=== PATIENT | female | born 1995 | race Caucasian/White ===

== ENCOUNTER → 2018-04-30 | Outpatient (CLI) | payer BC ==
--- NOTE | 2018-04-30 14:19 | RADIOLOGY REPORT (SQ) ---
EXAM DESCRIPTION: MRI HEAD WITHOUT COMPLETED DATE/TIME: 04/30/2018 1:04 pm REASON FOR STUDY: R51 HEADACHE R51 HEADACHE COMPARISON: None. TECHNIQUE: Multiplanar imaging includes non-contrasted T1, T2, FLAIR, and diffusion with ADC map seq uences. Images stored on PACS. LIMITATIONS: None. FINDINGS: ANATOMY: No anomalies. Normal vascular flow voids. Pituitary fossa normal. CSF SPACES: Normal in size and contour. No hemorrhage. CEREBRUM: Sulci and gyri normal in size and contour. Normal white matter signal on FLAIR imaging. No evidence of hemorrhage, mass, or extraaxial fluid collection. POSTERIOR FOSSA: No signal alteration. No hemorrhage. No edema, masses or mass effect. Internal vesta tory canals, cerebello-pontine angles, mastoids normal. DIFFUSION IMAGING: Negative for acute or sub-acute infarction. ORBITS: No masses. Globes normal. PARANASAL SINUSES: No fluid levels. Mucosa normal. OTHER: Susceptibility Imaging-No T2* evidence of abnormal parenchymal iron deposition. Diffusion ten sor imaging is unremarkable. IMPRESSION: NORMAL MRI OF THE BRAIN WITHOUT INTRAVENOUS GADOLINIUM CONTRAST. EVIDENCE OF ACUTE STROKE: NO. TECHNICAL DOCUMENTATION: JOB ID: [id number] [employer]- All Rights Reserved Reading location - IP/workstation name: [email or web address]
== END ==
LOC: RAD 13:53
PROVIDERS: ATTEND Specialist
DX: R51 Headache (principal)
CPT/HCPCS: 70551

== ENCOUNTER 2019-04-14 19:38 | Emergency (ER) | payer MEDICAID, OTHER ==
[2019-04-14 20:28] VITALS: BP 116/80
[2019-04-14] MEDS ORDERED: DIPHENHYDRAMINE HCL 50 MG/ML VIAL IV ONE (20:42)
[2019-04-14] MEDS ORDERED: NORMAL SALINE 1000 ML 1,000 ML IV ONE (20:42)
[2019-04-14] MEDS ORDERED: PROCHLORPERAZINE EDISYLATE INJ 10 MG/2 ML VIAL IV ONE (20:42)
--- NOTE | 2019-04-14 20:45 | ER Document Report ---
ED Medical Screen (RME) - General Chief Complaint: Chest Pain Stated Complaint: CHEST PAIN,HEADACHE Time Seen by Provider: 04/14/19 20:36 Primary Care Provider: THERESA DELEON MD [Primary Care Provider] - Follow up as needed Mode of Arrival: Ambulatory Information source: Patient Notes: Patient is an otherwise healthy 23-year-old female presenting to the emergency department chief complaint of midsternal chest pain that started Sunday. She reports it feels like a tightness and heaviness. She reports associated dizziness today. She states that she went to an urgent care who gave her multiple breathing treatments although she states that they told her her lungs were clear and she had no wheezing. She states that they gave her prescriptions for albuterol and sent her to the emergency department for a CAT scan of her chest as they felt that she might have a pulmonary embolism due to the fact that she is on control pills. Patient has no history of DVT or PE, she has not had any recent travel and is a non-smoker. She does take oral contraceptives. Exam: Heart sounds S1-S2 present with no ectopy noted, normal rate, normal rhythm. Lungs clear and equal bilaterally, no wheezes, rhonchi or adventitious lung sounds. I have greeted and performed a rapid initial assessment of this patient. A comprehensive ED assessment and evaluation of the patient, analysis of test results and completion of the medical decision making process will be conducted by additional ED providers. I have specifically instructed the patient or family members with the patient to immediately return to any nursing staff should anything change in the patient's condition or with their chief complaint. This medical record was dictated with voice recognizing software. There may be grammatical, syntax errors that are unintended. TRAVEL OUTSIDE OF THE [place] IN LAST 30 DAYS: No - Related Data Allergies/Adverse Reactions: No Known Allergies Allergy (Verified 04/14/19 19:39) Physical Exam - Vital signs Vitals: Temp Pulse Resp BP Pulse Ox 98.5 F 84 16 116/80 97 04/14/19 20:27 04/14/19 20:27 04/14/19 20:27 04/14/19 20:27 04/14/19 20:27 Course - Vital Signs Vital signs: Temp Pulse Resp BP Pulse Ox 98.5 F 84 16 116/80 97 04/14/19 20:27 04/14/19 20:27 04/14/19 20:27 04/14/19 20:27 04/14/19 20:27 Doctor's Discharge - Discharge Referrals: THERESA DELEON MD [Primary Care Provider] - Follow up as needed
[2019-04-14 21:28] LABS: ABSOLUTE EOSINOPHILS # (AUTO) 0.1 10^3/uL (0.0-0.6); ABSOLUTE MONOCYTES (AUTO) 0.6 10^3/uL (0.1-1.4); ABSOLUTE NEUT (AUTO) 5.1 10^3/uL (1.7-8.2); BASOPHILS % (AUTO) 0.4 % (0-2); EOSINOPHILS % (AUTO) 0.7 % (0-6); HEMATOCRIT 39.5 % (36.0-47.0); HEMOGLOBIN 13.5 g/dL (12.0-15.5); LYMPHOCYTES % (AUTO) 33.8 % (13-45); MEAN CORPUSCULAR HEMOGLOBIN 31.5 pg (27.0-33.4); MEAN CORPUSCULAR HGB CONC 34.3 g/dL (32.0-36.0); MEAN CORPUSCULAR VOLUME 92 fl (80-97); MONOCYTES % (AUTO) 7.3 % (3-13); PLATELET COUNT 279 10^3/uL (150-450); RED BLOOD COUNT 4.29 10^6/uL (3.72-5.28); RED CELL DISTRIBUTION WIDTH 11.4 % (11.5-14.0); SEGMENTED NEUTROPHILS % (AUTO) 57.8 % (42-78); TOTAL CELLS COUNTED % (AUTO) 100 %; WHITE BLOOD COUNT 8.8 10^3/uL (4.0-10.5)
[2019-04-14 21:44] LABS: INTERNATIONAL RATION (INR) 0.96; PROTHROMBIN TIME 12.8 SEC (11.4-15.4)
[2019-04-14 21:45] LABS: PARTIAL THROMBOPLASTIN TIME 28.5 SEC (23.5-35.8)
[2019-04-14 21:53] LABS: ALBUMIN 4.5 g/dL (3.5-5.0); ALKALINE PHOSPHATASE 48 U/L (38-126); ANION GAP 9 (5-19); ASPARTATE AMINO TRANSFERASE 24 U/L (14-36); BILIRUBIN,DIRECT 0.1 mg/dL (0.0-0.4); BILIRUBIN,TOTAL 0.3 mg/dL (0.2-1.3); BLOOD UREA NITROGEN 11 mg/dL (7-20); CALCIUM 9.9 mg/dL (8.4-10.2); CARBON DIOXIDE 30 mmol/L (22-30); CHLORIDE 102 mmol/L (98-107); GLUCOSE 97 mg/dL (75-110); POTASSIUM 3.7 mmol/L (3.6-5.0); TOTAL PROTEIN 7.1 g/dL (6.3-8.2)
--- NOTE | 2019-04-14 22:07 | RADIOLOGY REPORT (SQ) ---
EXAM DESCRIPTION: XR CHEST 2 VIEWS COMPLETED DATE/TME: 04/14/2019 20:41 CLINICAL HISTORY: 23 years, Female, chest pain COMPARISON: 05/08/2016 chest NUMBER OF VIEWS: 2 TECHNIQUE: 2 view chest LIMITATIONS: None. FINDINGS: Heart size is normal. Lungs are clear. No pneumothorax IMPRESSION: Negative chest copyright 2010 [employer]- All Rights Reserved
== END 2019-04-14 21:45 | disposition left against medical advice (07) ==
LOC: ER 19:38
DX: R07.9 Chest pain, unspecified (principal); R51 Headache; R42 Dizziness and giddiness
CPT/HCPCS: 36415; 85025; 85610; 85730; 80053; 71046; J1200; J0780; J7030; 96374; 96375; 99281

== ENCOUNTER 2020-04-02 15:20 | Emergency (ER) | payer BC, MEDICAID ==
[2020-04-02] MEDS ORDERED: ACETAMINOPHEN 325 MG TABLET PO ONE (16:00)
--- NOTE | 2020-04-02 16:02 | ER Document Report ---
ED Medical Screen (RME) - General Chief Complaint: Dizziness Stated Complaint: PSYCH Time Seen by Provider: 04/02/20 15:54 Primary Care Provider: THERESA DELEON MD [Primary Care Provider] - Follow up as needed Mode of Arrival: Wheelchair Information source: Patient Notes: 24-year-old female presented to ED for complaint of "mental breakdown. She states she was having a conversation about going out and then hurting her significant other got none argument over that then she got feeling upset and developed a headache so he tried to calm her down and then to get an argument again she had another panic attack. She states she started crying and laughing so hysterical if she could come down she states she wanted to come to the emergency room because she needs somebody to help her to calm down. She is very calm at this time but she does still have a headache. She does have a history of migraines hypothyroid heart she is on a heart monitor. She has depression bipolar disorder borderline personality disorder PTSD anxiety and she is having leg pains right now. She states she does not smoke she drinks weekly and she does smoke pot. She states last menstrual period started on 03/30/2020 I have greeted and performed a rapid initial assessment of this patient. A comprehensive ED assessment and evaluation of the patient, analysis of test results and completion of medical decision making process will be conducted by an additional ED providers. TRAVEL OUTSIDE OF THE [place] IN LAST 30 DAYS: No - Related Data Allergies/Adverse Reactions: No Known Allergies Allergy (Verified 04/14/19 19:39) Physical Exam - Vital signs Vitals: Temp Pulse Resp BP Pulse Ox 98.3 F 105 H 14 101/76 98 04/02/20 15:33 04/02/20 15:33 04/02/20 15:33 04/02/20 15:33 04/02/20 15:33 Course - Vital Signs Vital signs: Temp Pulse Resp BP Pulse Ox 98.3 F 105 H 14 101/76 98 04/02/20 15:33 04/02/20 15:33 04/02/20 15:33 04/02/20 15:33 04/02/20 15:33 Doctor's Discharge - Discharge Referrals: THERESA DELEON MD [Primary Care Provider] - Follow up as needed
[2020-04-02] MEDS ORDERED: ONDANSETRON 4 MG TAB.RAPDIS PO ONE (16:27)
[2020-04-02 16:49] LABS: APPEARANCE,URINE CLEAR; BILIRUBIN,URINE NEGATIVE (NEGATIVE); COLOR,URINE STRAW; GLUCOSE, URINE NEGATIVE (NEGATIVE); KETONES,URINE TRACE mg/dL (NEGATIVE); LEUKOCYTE ESTERASE,URINE NEGATIVE (NEGATIVE); NITRITE,URINE NEGATIVE (NEGATIVE); PROTEIN,URINE NEGATIVE (NEGATIVE); URINE SPECIFIC GRAVITY 1.005; UROBILINOGEN,URINE NEGATIVE mg/dL (<2.0)
[2020-04-02 16:50] LABS: ABSOLUTE LYMPHOCYTES (AUTO) 2.3 10^3/uL (0.5-4.7); ABSOLUTE MONOCYTES (AUTO) 0.5 10^3/uL (0.1-1.4); ABSOLUTE NEUT (AUTO) 3.2 10^3/uL (1.7-8.2); BASOPHILS % (AUTO) 0.6 % (0-2); EOSINOPHILS % (AUTO) 0.6 % (0-6); HEMATOCRIT 38.8 % (36.0-47.0); LYMPHOCYTES % (AUTO) 37.2 % (13-45); MEAN CORPUSCULAR HEMOGLOBIN 33.4 pg (27.0-33.4); MEAN CORPUSCULAR HGB CONC 36.1 g/dL (32.0-36.0); MEAN CORPUSCULAR VOLUME 92 fl (80-97); MONOCYTES % (AUTO) 8.3 % (3-13); PLATELET COUNT 311 10^3/uL (150-450); RED CELL DISTRIBUTION WIDTH 11.4 % (11.5-14.0); SEGMENTED NEUTROPHILS % (AUTO) 53.3 % (42-78); TOTAL CELLS COUNTED % (AUTO) 100 %; WHITE BLOOD COUNT 6.1 10^3/uL (4.0-10.5)
[2020-04-02 17:04] LABS: ALBUMIN 4.8 g/dL (3.5-5.0); ALKALINE PHOSPHATASE 49 U/L (38-126); ANION GAP 10 (5-19); ASPARTATE AMINO TRANSFERASE 21 U/L (14-36); BILIRUBIN,DIRECT 0.2 mg/dL (0.0-0.4); BILIRUBIN,TOTAL 0.9 mg/dL (0.2-1.3); BLOOD UREA NITROGEN 7 mg/dL (7-20); CALCIUM 9.8 mg/dL (8.4-10.2); CARBON DIOXIDE 24 mmol/L (22-30); CHLORIDE 105 mmol/L (98-107); GLUCOSE 89 mg/dL (75-110); POTASSIUM 3.8 mmol/L (3.6-5.0); TOTAL PROTEIN 7.8 g/dL (6.3-8.2)
[2020-04-02 17:05] LABS: URINE AMPHETAMINES SCREEN NEGATIVE; URINE BARBITURATES SCREEN NEGATIVE; URINE BENZODIAZEPINES SCREEN NEGATIVE; URINE COCAINE SCREEN NEGATIVE; URINE MARIJUANA (THC) SCREEN NEGATIVE; URINE METHADONE SCREEN NEGATIVE; URINE PHENCYCLIDINE SCREEN NEGATIVE
[2020-04-02 18:14] LABS: ACETAMINOPHEN < 10 ug/mL (10-30); ALCOHOL < 10 mg/dL (NONE DETECTED); SALICYLATE < 1.0 mg/dL (2.0-20.0)
--- NOTE | 2020-04-02 20:30 | ER Document Report ---
Doctor's Note Notes: 04/02/20 19:59 Met with Patient who advised she had a mental breakdown but would not elaborate. She reported she was having difficulty self-regulating her emotions, feeling as though she is very fatigued, and unable to concentrate or feel in control of life circumstances. She reported an increase in leg pain and stated her physician placed her on thyroid medicine secondary to hyperthyroidism. Patient reported she takes Lamictal 50 mg and Viibryd 50 mg for depression, Trokendi XR for migraines, and a thyroid medication. Patient reported she has dizzy spells and feels dehydrated. In addition, she reported she attends therapy group every other week and individual therapy on the opposite weeks with "[place]". Patient reported she feels as though therapy is helpful but she maintains difficulty controlling / managing her thoughts. Patient was alert and oriented to person, place, time, and circumstance. Mood was slightly guarded and affect was flat. She denied suicidal/homicidal ideation, intent or plan. She denied auditory/visual hallucinations and delusions were absent. Thought processes were linear, organized, and rational. Conversational speech was within normal limits for rate, tone, and prosody. Intellectual abilities were estimated within the average range. Eye contact was well maintained. Attention and concentration was within normal limits. Insight, judgment, and impulse control was fair. Diagnoses: 1. Depression 2. Borderline Personality Disorder Medication recommendation by psychiatric provider: 1. Increase Lamictal to 75 mg daily. Impression/Plan: Patient is clear from acute psychiatric services. She is guarded and presents as borderline personality disorder and needing a great deal of comfort. Her boyfriend is present and in the room. Patient is expressing she feels overwhelmed but is not suicidal or homicidal. She indicates she has an appointment with her provider next week and plans to follow up. She is amenable to a slight increase in her Lamictal to see if it will help stabilize her mood for the weekend. She reports having a good support network if she will use them. Her boyfriend agreed to be a part of her discharge plan. ED Physician in agreement with recommendation and disposition. Patient provided with crisis referrals nad suicide hotline numbers.
[2020-04-02 21:13] LABS: FREE T3 3.36 pg/mL (2.77-5.27); FREE T4 (FREE THYROXINE) 1.04 ng/dL (0.78-2.19)
[2020-04-02 21:26] LABS: THYROID STIMULATING HORMONE 0.84 uIU/mL (0.47-4.68)
--- NOTE | 2020-04-02 21:52 | ER Document Report ---
ED General - General Chief Complaint: Dizziness Stated Complaint: PSYCH Time Seen by Provider: 04/02/20 15:54 Primary Care Provider: THERESA DELEON MD [Primary Care Provider] - Follow up as needed Mode of Arrival: Wheelchair Notes: This 24-year-old female presents to the emergency department with history "nervous breakdown". The patient presenting history of migraines hypothyroid heart ,depressionl, bipolar disorder, borderline personality disorder PTSD and anxiety. She presents to the emergency department because she feels she is under control and needs to calm down. TRAVEL OUTSIDE OF THE [place] IN LAST 30 DAYS: No - Related Data Allergies/Adverse Reactions: No Known Allergies Allergy (Verified 04/14/19 19:39) Past Medical History - General Information source: Patient - Social History Smoking Status: Unknown if Ever Smoked Family History: Reviewed & Not Pertinent Patient has homicidal ideation: No Review of Systems - Review of Systems Notes: Constitutional: Negative for fever. HENT: Negative for sore throat. Eyes: Negative for visual changes. Cardiovascular: Negative for chest pain. Respiratory: Negative for shortness of breath. Gastrointestinal: Negative for abdominal pain, vomiting or diarrhea. Genitourinary: Negative for dysuria. Musculoskeletal: Negative for back pain. Skin: Negative for rash. Neurological: See HPI 10 point ROS negative except as marked above and in HPI. Physical Exam - Vital signs Vitals: Temp Pulse Resp BP Pulse Ox 98.3 F 105 H 14 101/76 98 04/02/20 15:33 04/02/20 15:33 04/02/20 15:33 04/02/20 15:33 04/02/20 15:33 - Notes Notes: PHYSICAL EXAMINATION: Physical Exam: General: Well-nourished well-developed 24-year-old female in no acute distress HEENT: NC/AT, pupils equal round and reactive to light, MM moist,nares clear, oropharynx clear, airway patent Neck: supple, no adenopathy, no masses. Good range of motion Lungs: clear, no wheezing, no rales no rhonchi CVS: Regular rate and rhythm no murmur gallop or rub Abdomen: Soft, active, nontender, no masses, no hepatosplenomegaly Ext: No edema, clubbing or cyanosis. Neuro: Alert and responsive, moving all 4 extremities on command, cranial nerves intact, no focal findings Skin: Intact no open lesions, no rash Course - Re-evaluation Re-evalutation: 04/02/20 23:48 Patient was seen by the psychiatrist and recommendation for Lamictal 75 mg daily was made. Patient will follow-up with [facility]. And further management as per the outpatient setting. - Vital Signs Vital signs: Temp Pulse Resp BP Pulse Ox 98.5 F 84 16 109/71 97 04/02/20 21:58 04/02/20 21:58 04/02/20 21:58 04/02/20 21:58 04/02/20 21:58 - Laboratory Result Diagrams: 04/02/20 16:28 04/02/20 16:28 Laboratory results interpreted by me: 04/02/20 04/02/20 04/02/20 16:28 16:28 16:28 MCHC 36.1 H RDW 11.4 L Urine Ketones TRACE H Urine Blood MODERATE H Salicylates < 1.0 L Acetaminophen < 10 L - Diagnostic Test Radiology reviewed: Pending, Image reviewed, Reports reviewed Discharge - Discharge Clinical Impression: Anxiety, Borderline personality disorder Depression Qualifiers: Depression Type: unspecified Qualified Code(s): F32.9 - Major depressive disorder, single episode, unspecified Condition: Good Disposition: HOME, SELF-CARE Instructions: Anxiety ([facility]) Additional Instructions: You are seen in the emergency department tonight it was recommended a increased dose of the Lamictal 75 mg daily. Please follow-up with [facility] for long-term management. HOME CARE INSTRUCTIONS & INFORMATION: Thank you for choosing us for your medical needs. We hope you're satisfied with the care you received. After you leave, you must properly care for your problem and, at the same time, observe its progress. Any condition can change. Some illnesses can change rapidly over hours or days. If your condition worsens, return to the Emergency Department or see your physician promptly. ABOUT YOUR X-RAYS AND EKG'S: If you had an EKG or X-rays taken, they have been read by the Emergency Physician. The X-rays and EKG's will also be read by a Radiologist or [employer] within 24 hours. If discrepancies are noted, you will be notified by telephone. Please be certain the ED has a correct telephone number & address where you can be reached. Also, realize that some fractures or abnormalities do not show up on initial X-rays. If your symptoms continue, see your physician. ABOUT YOUR LABORATORY TEST: If you had laboratory tests, the results have been reviewed by the Emergency Physician. Some test results (for example cultures) may not be available for several days. You will be contacted if any test result shows you need additional treatment. Please be certain the ED has a correct telephone number and address where you can be reached. ABOUT YOUR MEDICATIONS: You will receive instructions on how to take your medicine on the prescription label you receive. Additional information may be provided by the Pharmacy. If you have questions afterwards, call the ED for clarification or further instructions. Some prescribed medications may cause drowsiness. Do not perform tasks such as driving a car or operating machinery without consulting your Pharmacist. If you feel you need a refill of pain medication, your condition will need re-evaluation. Please do not call for a refill of any medication. ABOUT YOUR SIGNATURE: Signature of this document acknowledges to followin. Understanding that you received emergency treatment and that you may be released before al medical problems are known or treated. Please be certain the ED has a correct phone number & address where you can be reached. 2. Acknowledgement that you will arrange for follow-up care as recommended. 3. Authorization for the Emergency Physician to provide information to your follow-up Physician in order to maximize your care. AT ANY TIME, IF YOUR SYMPTOMS CHANGE SIGNIFICANTLY OR WORSEN OR YOU DEVELOP NEW SYMPTOMS, RETURN TO THE EMERGENCY DEPARTMENT IMMEDIATELY FOR RE-EVALUATION. OUR GOAL IS TO PROVIDE EXCELLENT MEDICAL CARE! WE HOPE THAT WE HAVE MET YOUR EXPECTATIONS DURING YOUR EMERGENCY DEPARTMENT VISIT AND THAT YOU FEEL YOU HAVE RECEIVED EXCELLENT CARE! Referrals: THERESA DELEON MD [Primary Care Provider] - Follow up as needed
[2020-04-02 21:59] VITALS: BP 109/71
== END 2020-04-02 22:01 | disposition home or self-care (01) ==
LOC: ER 15:20
DX: F41.9 Anxiety disorder, unspecified (principal); F60.3 Borderline personality disorder; F32.9 Major depressive disorder, single episode, unspecified; G43.909 Migraine, unspecified, not intractable, without status migrainosus; Z79.899 Other long term (current) drug therapy
CPT/HCPCS: 99284; 36415; 84439; 80307 ×4; 83690; 84443; 84703; 85025; 80053; 81001; 84481; J3490; 82962